=== PATIENT | male | born 1955 | race Caucasian/White ===

== ENCOUNTER 2016-05-11 13:09 | Outpatient (CLI) | payer OTHER ==
--- NOTE | 2016-05-11 14:00 | DIAGNOSTIC IMAGING REPORT ---
PROCEDURE: XR HAND 3 OR 4 VIEWS - RIGHT INDICATION: PARESTHESIA OF RIGHT HAND BENIGN POSTITIONAL VERTIGO ARTHRAL TECHNIQUE: Four views. COMPARISON: None. FINDINGS: Osseous structures and joint spaces are normal. IMPRESSION: 1. Normal right hand.
== END 2016-05-11 23:00 ==
LOC: XR SRH 13:09
DX: M25.50 Pain in unspecified joint (principal); R20.2 Paresthesia of skin; H81.10 Benign paroxysmal vertigo, unspecified ear